=== PATIENT | female | born 1980 | race Caucasian/White ===

== ENCOUNTER 2016-07-11 21:56 | Inpatient (IN) | payer MEDICAID ==
--- NOTE | 2016-07-11 22:26 | C.PDOC ---
Time Seen by Provider: 07/11/16 22:21 Chief Complaint (Nursing): Psychiatric Evaluation History Per: Patient Onset/Duration Of Symptoms: Days Current Symptoms Are (Timing): Still Present Suicide/Self Injury Attempted (Context): None Modifying Factor(s): Alcohol Severity: Moderate Associated Symptoms: Other (Auditory hallucinations) Additional History Per: Prior Records Past Medical History Reviewed: Historical Data, Nursing Documentation, Vital Signs Vital Signs: Last Vital Signs Temp 98.1 F 07/11/16 22:01 Pulse 120 H 07/11/16 22:01 Resp 20 07/11/16 22:01 BP 120/71 07/11/16 22:01 Pulse Ox 97 07/11/16 22:01 - Medical History PMH: Anxiety, Bipolar Disorder Surgical History: Tonsillectomy (12 yrs old) Family History: States: Unknown Family Hx - Social History Hx Alcohol Use: Yes Hx Substance Use: Yes - Immunization History Hx Tetanus Toxoid Vaccination: No Hx Influenza Vaccination: No Hx Pneumococcal Vaccination: No Review Of Systems Except As Marked, All Systems Reviewed And Found Negative. Constitutional: Negative for: Fever Cardiovascular: Negative for: Chest Pain Respiratory: Negative for: Shortness of Breath Gastrointestinal: Negative for: Abdominal Pain Musculoskeletal: Negative for: Neck Pain Neurological: Negative for: Weakness Psych: Positive for: Psychosis Physical Exam - Physical Exam Appears: Non-toxic, No Acute Distress Skin: Normal Color, Warm, Dry, No Rash Head: Atraumatic, Normacephalic Eye(s): bilateral: PERRL, EOMI Neck: Normal ROM, Supple Cardiovascular: Rhythm Regular Respiratory: Normal Breath Sounds, No Accessory Muscle Use Gastrointestinal/Abdominal: Soft, No Tenderness Extremity: Normal ROM Neurological/Psych: Oriented x3, Normal Motor, Normal Sensation ED Course And Treatment O2 Sat by Pulse Oximetry: 97 Pulse Ox Interpretation: Normal Disposition - Disposition Disposition: HOSPITALIZED Disposition Time: 22:26 Condition: STABLE - Clinical Impression Clinical Impression: Psychosis, Alcohol abuse Decision To Admit - Pt Status Changed To: Hospital Disposition Of: Inpatient - Admit Certification Admit to Inpatient:: After my assessment, the patient will require hospitalization for at least two midnights. This is because of the severity of symptoms shown, intensity of services needed, and/or the medical risk in this patient being treated as an outpatient. - InPatient: Physician Admission Certification: I certify that this patient requires 2 or more midnights of care for the following reason:: Psych. - . Bed Request Type: Psychiatry Admitting Physician: Gordy Drummond Patient Diagnosis: Psychosis, Alcohol abuse
--- NOTE | 2016-07-12 09:34 | PCM.PSYCH ---
Initial Psychiatric Evaluation - Initial Psychiatric Evaluation Type of Admission: Voluntary Legal Status: Capacity Chief Complaint (in patient's own words): "I'm hearing voices" Patient's Reaction to Hospitalization: positive History of Present Illness and Precipitating Events: Pt is a 35 yo F who is , lives with her parents and 4 children (parents have custody), is unemployed, and collects SSI. Pt came for evaluation because of auditory hallucinations. Pt states she hears voices described as men having conversations and "lots of noise". Pt states shes been hearing voices intermittently for the past 4 years. Sometimes the voices tell the pt to hurt herself, but not currently. Pt s last psych inpatient admission was 2 years ago at [facility] for 10 months for a similar episode. Pt states she follows up monthly at [facility] in [place]. Pt also has a history of alcohol use disorder. Admits to drinking 1 liter of vodka per day for the past 3-4 months. Last drink was 1 liter 3 days ago. History of multiple detox and 6-7 times in rehab. Denies any other drug use. Pt complains of tremors. States her mood has been "okay" for the past 2 weeks until this morning, since she hasnt had her medications and feels she is withdrawing. Denies fevers, chills, abdominal pain , nausea, vomiting, diarrhea, anxiety, paranoia, suicidal ideations, homicidal ideations. Past Psych Hx: Bipolar disorder, alcohol use disorder Family Psych Hx: denies PMHx: Asthma Meds: Suboxone, concerta, klonapin, gabapentin, saphris, benzotropine Current Medications: Active Medications Generic Name Dose Route Start Last Admin Trade Name Freq PRN Reason Stop Dose Admin Asenapine 10 mg 07/12/16 10:00 Saphris SL BID [facility] Buprenorphine HCl 2 mg 07/12/16 10:00 Subutex SL BID [facility] Chlordiazepoxide 25 mg 07/11/16 23:05 07/12/16 08:36 Librium PO 25 mg Q4H PRN Administration Alcohol Withdrawal Chlordiazepoxide 25 mg 07/12/16 00:00 07/12/16 06:30 Librium PO 07/15/16 23:59 25 mg Q6 [facility]IS[facility] Administration Taper Clonidine HCl 0.1 mg 07/11/16 23:05 Catapres PO Q4H PRN Symptoms of alcohol withdrawl Folic Acid 1 mg 07/12/16 10:00 Folic Acid PO DAILY [facility] Gabapentin 300 mg 07/12/16 10:00 Neurontin PO BID [facility] Hydroxyzine HCl 25 mg 07/11/16 23:06 Atarax PO Q4H PRN Anxiety Ibuprofen 600 mg 07/11/16 23:06 Motrin Tab PO Q6H PRN Pain, moderate (4-7) Influenza Virus Vaccine 45 mcg 07/12/16 11:30 Afluria IM 07/12/16 11:31 .ONCE ONE Multivitamins 1 tab 07/12/16 10:00 Hexavitamin PO DAILY [facility] Nicotine 1 patch 07/12/16 10:00 Nicoderm Cq TD DAILY [facility] Pneumococcal Polyvalent Vaccine 0.5 ml 07/12/16 10:30 Pneumovax 23 Vaccine IM 07/12/16 10:31 .ONCE ONE Quetiapine Fumarate 100 mg 07/11/16 23:15 07/11/16 23:36 Seroquel PO 100 mg HS [facility] Administration Thiamine HCl 100 mg 07/12/16 10:00 Vitamin B1 Tab PO DAILY [facility] Trazodone HCl 50 mg 07/11/16 23:05 07/11/16 23:36 Desyrel PO 50 mg HS PRN Administration Insomnia Past Psychiatric History - Past Psychiatric History Previous Treatment History: Inpatient Pertinent Medical Hx (Current Medical&Sleep Prob, Allergies): Allergies Allergy/AdvReac Type Severity Reaction Status Date / Time haloperidol [From Haldol] Allergy Verified 07/11/16 22:08 haloperidol lactate Allergy Verified 07/11/16 22:08 [From Haldol] lithium Allergy Verified 07/11/16 22:08 Benztropine [Cogentin] 1 tab PO BID 07/11/16 Buprenorphine HCl/Naloxone HCl [Suboxone 2 mg-0.5 mg Sl Film] 1 tab SL BID 07/11 Divalproex [Depakote DR (*BID*)] 1 tab PO DAILY 07/11/16 Saphris 1 tab SL BID 07/11/16 clonazePAM [Klonopin] 1 tab PO BID 07/11/16 rOPINIRole [Requip] 1 tab PO DAILY 07/11/16 Review of Systems - Review of Systems All systems: reviewed and no additional remarkable complaints except - Gastrointestinal Gastrointestinal: absent: Abdominal Pain, Constipation, Cramping, Diarrhea, Nausea, Vomiting - Neurological Neurological: Tremor. absent: Convulsions - Psychiatric Psychiatric: Anxiety, Auditory Hallucinations, Irritability, Mood Swings, Paranoia, Suicidal Ideation Mental Status Examination - Personal Presentation Personal Presentation: Looks stated age - Affect Affect: Depressed, Other (irritable) - Motor Activity Motor Activity: Psychomotor Agitation - Reliability in Providing Information Reliability in Providing Information: Poor, due to alteration in thoughts, Poor , due to altered mood - Speech Speech: Organized - Mood Mood: Depressed, Anxious - Formal Thought Process Formal Thought Process: Hallucinations, Delusions, Paranoia, Flight of ideas, Circumstantial - Hallucinations/Delusions Hallucinations: Visual, Auditory Delusions: Persecution - Obsessions/Compulsions Obsessions: No Compulsions: No - Cognitive Functions Orientation: Person, Place, Situation, Time Sensorium: Alert Attention/Concentration: Attentive Abstract Thinking: Regan Estimate of Intelligence: Below average Judgement: Imparied, as evidence by: Poor judgement, Imparied, as evidence by: Lack of insight into illness - Risk Risk: Suicidal, Withdrawal, Diminished functioning - Strength & Assets Inventory Strength & Assets Inventory: Cooperative DSM 5 DX - DSM 5 DSM 5 Diagnosis: 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 use disorder severe Alcohol withdrawal sedative/hypnotic use disorder moderate - Recommended/Plan of Treatment Treatment Recommendations and Plan of Treatment: 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 CBT Psychoeducation Supportive therapy, group therapy, individual therapy Depakote 250 mg by mouth twice a day Neurontin 300 mg by mouth 3 times a day Prolixin 5 mg by mouth twice a day Seroquel 100 mg by mouth daily at bedtime Trazodone 50 mg by mouth daily at bedtime Discontinue Concerta Discontinue Saphris Alcohol use disorder severe CBT Psychoeducation Supportive therapy, individual therapy Use [place] for abstinence Alcohol withdrawal uncomplicated CBT Psychoeducation Supportive therapy, individual therapy Librium when necessary Start Librium taper Start Folic acid/thiamine/multivitamin Opiate use disorder severe in 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
[2016-07-12] MEDS: Divalproex 250 mg DR Tab PO SCH ×2 (10:00→17:08)
[2016-07-12] MEDS: Multiple Vitamins Tab PO SCH (10:00)
[2016-07-12] MEDS: Buprenorphine Hydrochloride 2 mg SL SCH ×2 (10:00→17:07)
[2016-07-12] MEDS ORDERED: Pneumococcal 23-Valent Vaccine IM ONE (10:30)
[2016-07-12] MEDS ORDERED: Influenza Virus Vaccine 45 mcg/0.5 ml Syr IM ONE (11:30)
[2016-07-13] MEDS: Divalproex 250 mg DR Tab PO SCH (10:39)
[2016-07-13] MEDS: Buprenorphine Hydrochloride 2 mg SL SCH ×2 (10:39→17:27)
[2016-07-13] MEDS: Multiple Vitamins Tab PO SCH (10:40)
--- NOTE | 2016-07-13 11:19 | PCM.PYCHPN ---
Psychiatric Progress Note - Psychiatric Progress Note Patient seen today, length of contact: 16 min Patient Chief Complaint: "I'm feeling irritable" Problems Identified/Issues Discussed: Patient seen and evaluated, chart reviewed and discussed with the nurse. Patient reports irritability and agitation. She reports racing of thoughts and flight of ideas however, she remained isolated and withdrawn. She still reports auditory hallucinations and persecutory delusions but she remained calm and cooperative. She reports withdrawal symptoms including anxiety, headaches and sweating. She is taking medication and denied any side effects. Supportive therapy and psychoeducation were given Medication Change: Yes (Prolixin, Librium taper) Medical Record Reviewed: Yes Mental Status Examination - Cognitive Function Orientation: Person, Place, Situation, Time Memory: Intact Attention: WNL Concentration: Poor Association: Loose Fund of Knowledge: WNL - Mood Mood: Depressed, Anxious - Affect Affect: Constricted, Depressed - Speech Speech: Soft - Formal Thought Process Formal Thought Process: Hallucinations, Delusions, Paranoia, Flight of ideas - Suicidal Ideation Suicidal Ideation: No - Homicidal Ideation Homicidal Ideation: No Goal/Treatment Plan - Goal/Treatment Plan Need for Continued Stay: Discharge may exacerbated symptoms, Severe functional impairment Progress Toward Problem(s) and Goals/Treatment Plan: 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 CBT Psychoeducation Supportive therapy, group therapy, individual therapy Depakote 250 mg by mouth twice a day Neurontin 300 mg by mouth 3 times a day Prolixin 5 mg by mouth twice a day Seroquel 100 mg by mouth daily at bedtime Trazodone 50 mg by mouth daily at bedtime Alcohol use disorder severe CBT Psychoeducation Supportive therapy, individual therapy Use [place] for abstinence Alcohol withdrawal uncomplicated CBT Psychoeducation Supportive therapy, individual therapy Librium when necessary Librium taper Folic acid/thiamine/multivitamin Opiate use disorder severe in 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
[2016-07-13] MEDS: Divalproex 500 mg DR Tab PO SCH (17:26)
[2016-07-14] MEDS: Buprenorphine Hydrochloride 2 mg SL SCH ×2 (10:27→17:14)
[2016-07-14] MEDS: Divalproex 500 mg DR Tab PO SCH ×2 (10:27→17:14)
[2016-07-14] MEDS: Multiple Vitamins Tab PO SCH (10:28)
--- NOTE | 2016-07-14 15:08 | PCM.PYCHPN ---
Psychiatric Progress Note - Psychiatric Progress Note Patient seen today, length of contact: 16 min Patient Chief Complaint: "I'm feeling irritable" Problems Identified/Issues Discussed: Patient seen and evaluated, chart reviewed and discussed with the nurse. As per staff, patient started coming out of her room and attending groups and meetings. She remained calm and cooperative. Patient reports A bit improvement in the racing of thoughts and agitation. She reports somewhat improvement in the voices and asking to increase her dose of fluphenazine. She is taking medication and denied any side effects. Supportive therapy and psychoeducation were given Medication Change: Yes (Increase Prolixin, increase Depakote ,Librium taper) Medical Record Reviewed: Yes Mental Status Examination - Cognitive Function Orientation: Person, Place, Situation, Time Memory: Intact Attention: WNL Concentration: Poor Association: Loose Fund of Knowledge: WNL - Mood Mood: Depressed, Anxious - Affect Affect: Constricted, Depressed - Speech Speech: Soft - Formal Thought Process Formal Thought Process: Hallucinations, Delusions, Paranoia, Flight of ideas - Suicidal Ideation Suicidal Ideation: No - Homicidal Ideation Homicidal Ideation: No Goal/Treatment Plan - Goal/Treatment Plan Need for Continued Stay: Discharge may exacerbated symptoms, Severe functional impairment Progress Toward Problem(s) and Goals/Treatment Plan: 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 CBT Psychoeducation Supportive therapy, group therapy, individual therapy Depakote 500 mg by mouth twice a day Neurontin 300 mg by mouth 3 times a day Prolixin 5 mg by mouth daily Prolixin 10 mg PO QHS Seroquel 100 mg by mouth daily at bedtime Trazodone 50 mg by mouth daily at bedtime Alcohol use disorder severe CBT Psychoeducation Supportive therapy, individual therapy Use [place] for abstinence Alcohol withdrawal uncomplicated CBT Psychoeducation Supportive therapy, individual therapy Librium when necessary Librium taper Folic acid/thiamine/multivitamin Opiate use disorder severe in 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
--- NOTE | 2016-07-15 10:21 | PCM.PYCHPN ---
Psychiatric Progress Note - Psychiatric Progress Note Patient seen today, length of contact: 17 min Patient Chief Complaint: "I'm still hearing voices " Problems Identified/Issues Discussed: Patient seen and evaluated, chart reviewed and discussed with the nurse. Today patient states that she is still hearing voices and she also reports of irritability and agitation. As per staff, patient appears more calm and cooperative and she is attending groups and meetings. She denies any suicidal ideation or homicidal ideation. She is taking medication and denied any side effects. Supportive therapy and psychoeducation were given Medication Change: Yes (Increase Prolixin, Librium taper) Medical Record Reviewed: Yes Mental Status Examination - Cognitive Function Orientation: Person, Place, Situation, Time Memory: Intact Attention: WNL Concentration: Poor Association: Loose Fund of Knowledge: WNL - Mood Mood: Depressed, Anxious - Affect Affect: Constricted, Depressed - Speech Speech: Soft - Formal Thought Process Formal Thought Process: Hallucinations, Flight of ideas - Suicidal Ideation Suicidal Ideation: No - Homicidal Ideation Homicidal Ideation: No Goal/Treatment Plan - Goal/Treatment Plan Need for Continued Stay: Discharge may exacerbated symptoms, Severe functional impairment Progress Toward Problem(s) and Goals/Treatment Plan: 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 CBT Psychoeducation Supportive therapy, group therapy, individual therapy Depakote 500 mg by mouth twice a day D/C Neurontin 300 mg by mouth 3 times a day Prolixin 10 mg by mouth daily Prolixin 10 mg PO QHS Seroquel 100 mg by mouth daily at bedtime Trazodone 50 mg by mouth daily at bedtime Alcohol use disorder severe CBT Psychoeducation Supportive therapy, individual therapy Use [place] for abstinence Alcohol withdrawal uncomplicated CBT Psychoeducation Supportive therapy, individual therapy Librium when necessary Librium taper Folic acid/thiamine/multivitamin Opiate use disorder severe in remission on agonist therapy Continue Suboxone 2 mg SL twice a day Monitor signs and symptoms Use [place] for abstinence Sedative/hypnotic use disorder moderate Discontinue Klonopin Ativan 1 mg by mouth every 6 hours when necessary Monitor signs and symptoms Use [place] for abstinence - Smoking Cessation Smoking Cessation Initiated: Yes
[2016-07-15] MEDS: Multiple Vitamins Tab PO SCH (10:25)
[2016-07-15] MEDS: Buprenorphine Hydrochloride 2 mg SL SCH ×2 (10:25→17:38)
[2016-07-15] MEDS: Divalproex 500 mg DR Tab PO SCH ×2 (10:25→17:38)
[2016-07-16] MEDS: Buprenorphine Hydrochloride 2 mg SL SCH ×2 (09:14→17:01)
[2016-07-16] MEDS: Multiple Vitamins Tab PO SCH (09:27)
[2016-07-16] MEDS: Divalproex 500 mg DR Tab PO SCH ×2 (09:30→17:01)
--- NOTE | 2016-07-16 13:15 | PCM.PYCHPN ---
Psychiatric Progress Note - Psychiatric Progress Note Patient seen today, length of contact: 16 min Patient Chief Complaint: "i need an anxiety medicine" Problems Identified/Issues Discussed: The pt is seen, chart reviewed, case discussed with staff. The pt is compliant with medications and reports no side-effects. Symptoms are improving but needs more time to stabilize. After care discussed, support and psychoeducation given. [place] and CBT used briefly. Inderal added for anxiety Medication Change: Yes (add inderal) Medical Record Reviewed: Yes Mental Status Examination - Cognitive Function Orientation: Person, Place, Situation, Time Memory: Intact Attention: WNL Concentration: Poor Association: Loose Fund of Knowledge: WNL - Mood Mood: Depressed, Anxious - Affect Affect: Constricted - Speech Speech: Soft - Formal Thought Process Formal Thought Process: No Impairment - Suicidal Ideation Suicidal Ideation: No - Homicidal Ideation Homicidal Ideation: No Goal/Treatment Plan - Goal/Treatment Plan Need for Continued Stay: Discharge may exacerbated symptoms, Severe functional impairment Progress Toward Problem(s) and Goals/Treatment Plan: Continue medications Support and psychoeducation daily Attend groups and activities daily After care planning by arik Estimated Date of D/C: 07/18/16
[2016-07-17] MEDS: Multiple Vitamins Tab PO SCH (09:04)
[2016-07-17] MEDS: Divalproex 500 mg DR Tab PO SCH ×2 (09:04→17:40)
[2016-07-17] MEDS: Buprenorphine Hydrochloride 2 mg SL SCH ×2 (09:06→17:40)
--- NOTE | 2016-07-17 16:02 | PCM.PYCHPN ---
Psychiatric Progress Note - Psychiatric Progress Note Patient seen today, length of contact: 15 min Patient Chief Complaint: "better today" Problems Identified/Issues Discussed: The pt is seen, chart reviewed, case discussed with staff. The pt is compliant with medications and reports no side-effects. She says she liked the inderal. Symptoms are improving but needs more time to stabilize. ME and CBT used briefly again. Medication Change: No Medical Record Reviewed: Yes Mental Status Examination - Cognitive Function Orientation: Person, Place, Situation, Time Memory: Intact Attention: WNL Concentration: Poor Association: Loose Fund of Knowledge: WNL - Mood Mood: Depressed, Anxious - Affect Affect: Constricted - Speech Speech: Soft - Formal Thought Process Formal Thought Process: No Impairment - Suicidal Ideation Suicidal Ideation: No - Homicidal Ideation Homicidal Ideation: No Goal/Treatment Plan - Goal/Treatment Plan Need for Continued Stay: Discharge may exacerbated symptoms, Severe functional impairment Progress Toward Problem(s) and Goals/Treatment Plan: Continue medications Support and psychoeducation daily Attend groups and activities daily After care planning by SAMIR - Likely at [place] Estimated Date of D/C: 07/19/16
[2016-07-18] MEDS: Multiple Vitamins Tab PO SCH (09:56)
[2016-07-18] MEDS: Divalproex 500 mg DR Tab PO SCH ×2 (09:57→17:03)
[2016-07-18] MEDS: Buprenorphine Hydrochloride 2 mg SL SCH ×2 (09:57→17:03)
--- NOTE | 2016-07-18 13:20 | PCM.PYCHPN ---
Psychiatric Progress Note - Psychiatric Progress Note Patient seen today, length of contact: 15 min Patient Chief Complaint: "I'm still hearing voices " Problems Identified/Issues Discussed: Patient seen and evaluated, chart reviewed and discussed with the nurse. Today patient states that she is still hearing voices and she also reports of irritability and agitation. As per staff, patient appears more calm and cooperative and she is attending groups and meetings. She denies any suicidal ideation or homicidal ideation. She is taking medication and denied any side effects. Supportive therapy and psychoeducation were given Medication Change: No Medical Record Reviewed: Yes Mental Status Examination - Cognitive Function Orientation: Person, Place, Situation, Time Memory: Intact Attention: WNL Concentration: Poor Association: Loose Fund of Knowledge: WNL - Mood Mood: Depressed, Anxious - Affect Affect: Constricted - Speech Speech: Soft - Formal Thought Process Formal Thought Process: No Impairment - Suicidal Ideation Suicidal Ideation: No - Homicidal Ideation Homicidal Ideation: No Goal/Treatment Plan - Goal/Treatment Plan Need for Continued Stay: Discharge may exacerbated symptoms, Severe functional impairment Progress Toward Problem(s) and Goals/Treatment Plan: 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 CBT Psychoeducation Supportive therapy, group therapy, individual therapy Depakote 500 mg by mouth twice a day D/C Neurontin 300 mg by mouth 3 times a day Prolixin 10 mg by mouth daily Prolixin 10 mg PO QHS Seroquel 100 mg by mouth daily at bedtime Trazodone 50 mg by mouth daily at bedtime Alcohol use disorder severe CBT Psychoeducation Supportive therapy, individual therapy Use [place] for abstinence Alcohol withdrawal uncomplicated CBT Psychoeducation Supportive therapy, individual therapy Librium when necessary Librium taper Folic acid/thiamine/multivitamin Opiate use disorder severe in 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
[2016-07-18 16:40] VITALS: O2SAT 98
[2016-07-19] MEDS: Buprenorphine Hydrochloride 2 mg SL SCH ×2 (09:17→17:02)
[2016-07-19] MEDS: Multiple Vitamins Tab PO SCH (09:17)
[2016-07-19] MEDS: Divalproex 500 mg DR Tab PO SCH ×2 (09:17→17:09)
--- NOTE | 2016-07-19 10:25 | PCM.PYCHPN ---
Psychiatric Progress Note - Psychiatric Progress Note Patient seen today, length of contact: 15 min Patient Chief Complaint: "I'm still anxious and can't sleep at night" Problems Identified/Issues Discussed: Pt was seen, chart reviewed and case discussed with staff. Pt is complaint with medication and participating in groups and activities. Pt still complains of voices commanding her to "end her life," as well as poor sleep. Also complains of feeling unsteady on her feet; denies falling, dizziness. She is still reporting depressed mood and feelings of hopelessness and helplessness or she denies suicidal and homicidal ideation. Psychoeducation and support provided. Medication Change: Yes (Fluphenazine decanoate) Medical Record Reviewed: Yes Mental Status Examination - Cognitive Function Orientation: Person, Place, Situation, Time Memory: Intact Attention: WNL Concentration: Poor Association: Loose Fund of Knowledge: WNL - Mood Mood: Depressed, Anxious - Affect Affect: Constricted - Speech Speech: Soft - Formal Thought Process Formal Thought Process: Hallucinations, Delusions, Paranoia - Suicidal Ideation Suicidal Ideation: No - Homicidal Ideation Homicidal Ideation: No Goal/Treatment Plan - Goal/Treatment Plan Need for Continued Stay: Discharge may exacerbated symptoms, Severe functional impairment Progress Toward Problem(s) and Goals/Treatment Plan: 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 CBT Psychoeducation Supportive therapy, group therapy, individual therapy Depakote 500 mg by mouth twice a day Prolixin 10 mg by mouth daily Prolixin 10 mg PO QHS Seroquel 200 mg by mouth daily at bedtime Trazodone 50 mg by mouth daily at bedtime Congentin 1mg PO 2 times a day Fluphenazine decanoate 25mg IM once Alcohol use disorder severe CBT Psychoeducation Supportive therapy, individual therapy Use [place] for abstinence Alcohol withdrawal uncomplicated CBT Psychoeducation Supportive therapy, individual therapy Librium when necessary Librium taper completed Folic acid/thiamine/multivitamin Opiate use disorder severe in 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
[2016-07-19] MEDS ORDERED: fluPHENAZine Decanoate 25 mg/mL Inj(5ml) IM ONE (11:00)
[2016-07-19] MEDS: Aluminum Hydroxide/Magnesium Hydroxide Susp (30 mL) PO PRN (17:02)
--- NOTE | 2016-07-20 09:47 | PCM.PYCHPN ---
Psychiatric Progress Note - Psychiatric Progress Note Patient seen today, length of contact: 15 min Patient Chief Complaint: I'm feeling better than yesterday Problems Identified/Issues Discussed: Pt was seen, chart reviewed and case discussed with staff. As per staff patient tolerated the Prolixin Decanoate injection and denied any complications. She reports improvement in her voices and states, 'voices are calm down.' However she is less depressed and less isolated. She reports improvement in withdrawal symptoms and started participating in groups and activities. She is taking medication and denied any side effects. Psychoeducation and support provided. Medication Change: No Medical Record Reviewed: Yes Mental Status Examination - Cognitive Function Orientation: Person, Place, Situation, Time Memory: Intact Attention: WNL Concentration: Poor Association: WNL Fund of Knowledge: WNL - Mood Mood: Depressed, Anxious - Affect Affect: Constricted - Speech Speech: Soft - Formal Thought Process Formal Thought Process: Hallucinations, Delusions - Suicidal Ideation Suicidal Ideation: No - Homicidal Ideation Homicidal Ideation: No Goal/Treatment Plan - Goal/Treatment Plan Need for Continued Stay: Discharge may exacerbated symptoms, Severe functional impairment Progress Toward Problem(s) and Goals/Treatment Plan: 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 CBT Psychoeducation Supportive therapy, group therapy, individual therapy Depakote 500 mg by mouth twice a day Prolixin 10 mg by mouth daily Prolixin 10 mg PO QHS Seroquel 200 mg by mouth daily at bedtime Trazodone 50 mg by mouth daily at bedtime Congentin 1mg PO 2 times a day Fluphenazine decanoate 25mg IM once (Next 08/02/16) Alcohol use disorder severe CBT Psychoeducation Supportive therapy, individual therapy Use AL for abstinence Alcohol withdrawal uncomplicated CBT Psychoeducation Supportive therapy, individual therapy Librium when necessary Librium taper Folic acid/thiamine/multivitamin Opiate use disorder severe in remission on agonist therapy Continue Suboxone 2 mg SL twice a day Monitor signs and symptoms Use AL for abstinence Sedative/hypnotic use disorder moderate Discontinue Klonopin Ativan 1 mg by mouth every 6 hours when necessary Monitor signs and symptoms Use AL for abstinence Estimated Date of D/C: 07/21/16 - Smoking Cessation Smoking Cessation Initiated: No
[2016-07-20] MEDS: Multiple Vitamins Tab PO SCH (09:51)
[2016-07-20] MEDS: Divalproex 500 mg DR Tab PO SCH ×2 (09:51→17:09)
[2016-07-20] MEDS: Buprenorphine Hydrochloride 2 mg SL SCH ×2 (09:51→17:09)
[2016-07-20] MEDS: Aluminum Hydroxide/Magnesium Hydroxide Susp (30 mL) PO PRN (16:54)
[2016-07-21] MEDS: Divalproex 500 mg DR Tab PO SCH ×2 (10:05→18:00)
[2016-07-21] MEDS: Buprenorphine Hydrochloride 2 mg SL SCH ×2 (10:05→18:00)
[2016-07-21] MEDS: Multiple Vitamins Tab PO SCH (10:05)
--- NOTE | 2016-07-21 17:17 | PCM.PYCHPN ---
Psychiatric Progress Note - Psychiatric Progress Note Patient seen today, length of contact: 15 min Patient Chief Complaint: "I'm so much better than I was when I first got here" Problems Identified/Issues Discussed: Pt was seen, chart reviewed and case discussed with staff. Pt states auditory hallucinations are much improved following Prolixin decanoate injection. Today, pt is complaining of shakiness and restlessness. However states she feels much better overall, and ready to go home tomorrow. Pt noted to be socializing, and participating in groups and activities. Pt compliant with medication. Denies visual hallucinations, suicidal ideation, and homicidal ideation. Psychoeducation and support given. Medication Change: No Medical Record Reviewed: Yes Mental Status Examination - Cognitive Function Orientation: Person, Place, Situation, Time Memory: Intact Attention: WNL Concentration: Poor Association: Loose Fund of Knowledge: WNL - Mood Mood: Depressed, Anxious - Affect Affect: Constricted - Speech Speech: Soft - Formal Thought Process Formal Thought Process: No Impairment - Suicidal Ideation Suicidal Ideation: No - Homicidal Ideation Homicidal Ideation: No Goal/Treatment Plan - Goal/Treatment Plan Need for Continued Stay: Discharge may exacerbated symptoms, Severe functional impairment Progress Toward Problem(s) and Goals/Treatment Plan: Continue medications Support and psychoeducation daily Attend groups and activities daily After care planning by SAMIR - Likely at [facility] Estimated Date of D/C: 07/19/16
--- NOTE | 2016-07-22 09:52 | PCM.PYCHDC ---
Mental Status Examination - Mental Status Examination Orientation: Person, Place, Situation, Time Memory: Intact Mood: Neutral Affect: Broad Speech: Appropriate Attention: WNL Concentration: WNL Association: WNL Fund of Knowledge: WNL Formal Thought Process: No Impairment Suicidal Ideation: No Current Homicidal Ideation?: No Discharge Summary - Discharge Note Reason for Hospitalization: Psychosis, Alcohol abuse Consultations:: List each consultation separately and include: 1. Reason for request. 2. Findings. 3. Follow-up Summary of Hospital Course include:: 1. Description of specific treatment plan utilized for patients during their course of treatmen. 2. Summarize the time- course for resolution of acute symptoms and/or regressed behaviors. 3. Describe issues identified and worked on during hospitalization. 4. Describe medication utilized. 5. Describe medical problems identified and treated. 6. Reassessment of suicide risk Summary of Hospital Course: Pt is a 35 yo F who is , lives with her parents and 4 children (parents have custody), is unemployed, and collects SSI. Pt came for evaluation because of auditory hallucinations. Pt states she hears voices described as men having conversations and "lots of noise". Pt states shes been hearing voices intermittently for the past 4 years. Sometimes the voices tell the pt to hurt herself, but not currently. Pt s last psych inpatient admission was 2 years ago at [facility] for 10 months for a similar episode. Pt states she follows up monthly at [facility] in [place]. Pt also has a history of alcohol use disorder. Admits to drinking 1 liter of vodka per day for the past 3-4 months. Last drink was 1 liter 3 days ago. History of multiple detox and 6-7 times in rehab. Denies any other drug use. Pt complains of tremors. States her mood has been "okay" for the past 2 weeks until this morning, since she hasnt had her medications and feels she is withdrawing. Denies fevers, chills, abdominal pain , nausea, vomiting, diarrhea, anxiety, paranoia, suicidal ideations, homicidal ideations. Past Psych Hx: Bipolar disorder, alcohol use disorder Family Psych Hx: denies PMHx: Asthma Meds: Suboxone, concerta, klonapin, gabapentin, saphris, benzotropine "I'm good" The pt is seen, chart reviewed, case discussed. Pt does not have any complaints today and is ready for discharge. Pt slept well the night before. Pt denies auditory and visual hallucinations. Pt denies thoughts of hurting themselves or other people. Pt plan is to go live with parents after discharge and attend [facility]. After care discussed, support and psychoeducation given. Attended Groups [place], CBT used Pt responded well to treatment - Final Diagnosis (DSM 5) Condition upon Discharge: STABLE DSM 5: Bipolar disorder mixed-severe with psychotic features Alcohol use disorder-severe Sedative/hypnotic use disorder-moderate Disposition: HOME/ ROUTINE Follow-up Treatment Plan: Continue with below meds IOP at [facility] Use relapse prevention skills Attend AA meetings Return to ER if experience suicidal ideation, homicidal ideation, aggitation Prescriptions/Medication Reconciliation: Benztropine [Cogentin] 1 mg PO BID #60 tab traZODone [Desyrel] 50 mg PO HS PRN #30 tab PRN Reason: Insomnia Propranolol [Inderal] 20 mg PO BID #60 tab fluPHENAZine [Prolixin] 10 mg PO BID #60 tab QUEtiapine [SEROquel] 200 mg PO HS #30 tab - Smoking Cessation Smoking Cessation Medication prescribed: No - Antipsychotic Medications Pt discharged on 2 or more routine antipsychotic medications: No
[2016-07-22 09:54] VITALS: RESP 19; TEMP 98.2
[2016-07-22] MEDS: Divalproex 500 mg DR Tab PO SCH (11:18)
[2016-07-22] MEDS: Buprenorphine Hydrochloride 2 mg SL SCH (11:18)
[2016-07-22] MEDS: Multiple Vitamins Tab PO SCH (11:19)
[2016-07-22 15:58] VITALS: BP 108/71; PULSE 92
== END 2016-07-22 18:30 | disposition home or self-care (01) | DRG 430 ==
LOC: C.ER 21:56 → C.5E 22:27
PROVIDERS: ADMIT Psychiatry & Neurology Psychiatry; ATTEND Psychiatry & Neurology Psychiatry
PROC: GZ58ZZZ Individual Psychotherapy, Cognitive-Behavioral (ICD-10-PCS; principal; 2016-07-11)
PROC: HZ42ZZZ Group Counseling for Substance Abuse Treatment, Cognitive-Behavioral (ICD-10-PCS; 2016-07-11)
PROC: HZ46ZZZ Group Counseling for Substance Abuse Treatment, Psychoeducation (ICD-10-PCS; 2016-07-11)
PROC: HZ2ZZZZ Detoxification Services for Substance Abuse Treatment (ICD-10-PCS; 2016-07-11)
PROC: GZ56ZZZ Individual Psychotherapy, Supportive (ICD-10-PCS; 2016-07-11)
DX: F31.64 Bipolar disorder, current episode mixed, severe, with psychotic features (principal); F22 Delusional disorders; F10.239 Alcohol dependence with withdrawal, unspecified; F11.90 Opioid use, unspecified, uncomplicated; F41.9 Anxiety disorder, unspecified; J45.909 Unspecified asthma, uncomplicated; Z79.899 Other long term (current) drug therapy